=== PATIENT | female | born 1990 ===

== ENCOUNTER 2017-07-04 14:38 | Inpatient (IN) | payer OTHER ==
[~2017-07-04] VITALS: Ht 167.6 cm; Wt 78.0 kg
[2017-07-04] MEDS ORDERED: PRENATAL TABLE1 EAC3 PO (15:04)
[2017-07-04] MEDS ORDERED: VALTREX1000 MG PO (15:05)
[2017-07-06] MEDS ORDERED: CEFUROXIME250 MG PO (08:20)
[2017-07-06] MEDS ORDERED: FAMOTIDINE20 MG PO (08:20)
== END 2017-07-06 09:01 | disposition home or self-care (01) | DRG 781 ==
LOC: OB/GYN 14:38 → LDR 14:38 → OB/GYN 07-05 09:04
PROC: 4A1HXCZ Monitoring of Products of Conception, Cardiac Rate, External Approach (ICD-10-PCS; principal; 2017-07-04)
DX: O13.3 Gestational [pregnancy-induced] hypertension without significant proteinuria, third trimester (principal); O23.43 Unspecified infection of urinary tract in pregnancy, third trimester; Z3A.36 36 weeks gestation of pregnancy

== ENCOUNTER 2017-07-26 08:08 | Inpatient (IN) | payer OTHER ==
[~2017-07-26] VITALS: Ht 167.6 cm; Wt 180.0 kg
[~2017-07-26 08:08] MED LIST: CEFUROXIME250 MG PO; FAMOTIDINE20 MG PO; PRENATAL TABLE1 EAC3 PO; VALTREX1000 MG PO
== END 2017-07-28 12:04 | DRG 775 ==
LOC: LDR 08:08 → OB/GYN 08:08 → LDR 08:29 → OB/GYN 16:34
PROC: 0KQM0ZZ Repair Perineum Muscle, Open Approach (ICD-10-PCS; principal; 2017-07-26)
PROC: 10E0XZZ Delivery of Products of Conception, External Approach (ICD-10-PCS; 2017-07-26)
PROC: 4A1HXCZ Monitoring of Products of Conception, Cardiac Rate, External Approach (ICD-10-PCS; 2017-07-26)
PROC: 4A033R1 Measurement of Arterial Saturation, Peripheral, Percutaneous Approach (ICD-10-PCS; 2017-07-26)
DX: O70.1 Second degree perineal laceration during delivery (principal); O41.03X0 Oligohydramnios, third trimester, not applicable or unspecified; Z37.0 Single live birth; Z3A.39 39 weeks gestation of pregnancy